=== PATIENT | male | born 1955 | race Caucasian/White ===

== ENCOUNTER 2019-03-19 20:18 | Emergency (ER) | payer OTHER ==
--- NOTE | 2019-03-19 20:44 | EDPHY ---
General Time Seen by Provider: 03/19/19 20:43 Narrative: CLINICAL IMPRESSION: Left hand laceration ASSESSMENT/PLAN: Patient is a 63-year-old male with a history of hypothyroidism and pre diabetes who presents to the emergency department with a left hand laceration. Physical examination reveals a 3 cm laceration on the palmar aspect of the left hand in between the 2nd and 3rd digits with an exit laceration on the dorsal aspect of the 1st webspace, there is pulsatile bleeding concerning for palmar digital artery injury. There is no evidence of neuro compromise, foreign body, or bony involvement. The wound was not contaminated, tetanus status was updated in the emergency department. Secondary to arterial injury, consulted hand specialist Dr. Gonzales. He evaluated this patient in the emergency department and repaired the patient's laceration, please see his dictation for further information. The patient was given Ancef and will continue Keflex as an outpatient, he will follow up with Dr. Gonzales on Wednesday for repeat examination. Return precautions were discussed. ED course: 2111: Case discussed with Dr. Gonzales, he will come in to evaluate this patient. 2219: Dr. Gonzales has completed laceration repair. He would like to see the patient on Wednesday for follow-up. Tetanus status was updated. CHIEF COMPLAINT: Hand Laceration HPI: Patient is a 63-year-old male with a significant history of hypothyroidism and pre diabetes who presents to the emergency department with a laceration to his left hand. Patient reports at approximately noon today he was trying to cut a mattress topper with a filet knife when he accidentally cut through his left hand. Patient applied a dressing, initially have the bleeding under control however several hours later the bleeding started again. Patient lives in [place], initially did not want repaired however was concerned because he could not get it to stop bleeding. Patient denies any numbness or tingling of any of his digits, he is experiencing pain at the site of the laceration only. He denies any decreased range of motion of any digit. He does have a history of remote large laceration to the hand secondary to a chain saw. He is right- hand dominant, he is unsure when his last tetanus status was. He denies any other injury or complaint. REVIEW OF SYSTEMS: All other systems negative, please see HPI. PHYSICAL EXAM: General Appearance: Alert, oriented, appropriate for age, cooperative, NAD, well hydrated, non-toxic appearing, VSS, no hypoxia. Neurological: Alert and oriented x 3. Cranial nerves 2-12 grossly intact. Skin: Warm, dry. See below Upper Extremities: Left hand reveals a 3 cm laceration appears to be through and through to the thenar eminence, initiating in between the 2nd and 3rd digits on the palmar aspect, exiting on the dorsal aspect of the 1st webspace. There is active pulsatile bleeding with concern for palmar digital artery injury. Sensation is intact distally along both sides of each finger. Full range of motion of both the thumb, pointer and middle fingers, each interphalangeal joint was tested independently with full range of motion and strength. The radial, ulnar and median nerves were all tested. Radial nerve: Patient is able to extend wrist and fingers of the local joints. Ulnar nerve: Patient is able to abduct all fingers. Median nerve patient is able to oppose thumb to pinky. 2+ radial pulse. Left upper extremity is otherwise unremarkable with full range of motion and nontender. Lower Extremities: Intact distal pulses, No edema, No tenderness, No cyanosis, full range of motion intact, No calf tenderness bilaterally. MEDICAL DECISION MAKING: Patient was seen independently. Secondary supervising physician at time of evaluation was Dr. Light, he did not evaluate this patient. Diagnosis: Left hand laceration. Summary: See assessment and plan for summary of ED visit Decision to obtain medical records or history from someone other than the patient: No Review / Summarize previous medical records: Yes Disposition: Stable, discharge - Diagnostics Imaging Results: Imaging Impressions Hand X-Ray 03/19/19 20:49 IMPRESSION: 1. No underlying osseous abnormality seen left hand with soft tissue swelling around the second MCP joint. - History Smoking Status: Never smoked - Objective Vital Signs: Initial Vital Signs Temperature (C) 36.3 C 03/19/19 20:20 Heart Rate 78 03/19/19 20:20 Respiratory Rate 16 03/19/19 20:20 Blood Pressure 179/112 H 03/19/19 20:20 O2 Sat (%) 95 03/19/19 20:20 O2 Delivery Mode Room Air Allergies/Adverse Reactions: Penicillins Allergy (Verified 03/19/19 20:21) Home Medications: Medication Instructions Recorded Cephalexin [Keflex (*)] 500 mg PO Q6H 5 Days cap 03/19/19 Synthroid 03/19/19 Medications Given: Discontinued Medications Hydrocodone Bitart/Acetaminophen ([place] 5/325mg Prepack#6) 1 btl TAKEHOME EDNOW ONE Stop: 03/19/19 22:20 Last Admin: 03/19/19 22:33 Dose: 1 btl Cephalexin (Keflex 500 Mg Prepack#4) 1 btl TAKEHOME EDNOW ONE PRN Reason: Protocol Stop: 03/19/19 22:31 Last Admin: 03/19/19 22:35 Dose: 1 btl Diphtheria/Tetanus/Acell Pertussis (Boostrix) 0.5 ml IM .ONCE ONE Stop: 03/19/19 22:21 Last Admin: 03/19/19 22:38 Dose: 0.5 ml Cefazolin Sodium/Dextrose (Ancef 1 Gm (Premix)) 50 mls @ 200 mls/hr IV EDNOW ONE PRN Reason: Protocol Stop: 03/19/19 21:27 Last Admin: 03/19/19 21:41 Dose: 50 mls Departure - Departure Disposition: Home, Routine, Self-Care Clinical Impression: Hand laceration Qualifiers: Encounter type: initial encounter Foreign body presence: without foreign body Laterality: left Qualified Code(s): S61.412A - Laceration without foreign body of left hand, initial encounter Condition: Good Instructions: Cephalexin (By mouth), Hydrocodone/Acetaminophen (By mouth), Laceration (ED) Additional Instructions: DISCHARGE INSTRUCTIONS FROM YOUR PROVIDER Thank you for visiting our emergency department today. Please follow-up with Dr. Gonzales as directed on [place]. Please follow his instructions as far as your wound care. You have been prescribed antibiotics, please take as directed for the next 5 days. Do not soak the wound while the stitches are in place. For pain control: You may take Tylenol, I recommend 500-1000 mg every 6-8 hours as needed. Take with food and a full glass of water. Stop taking if this is upsetting you stomach. Do not exceed 4000 mg in a 24 hr period. You may also take ibuprofen, recommend 400 mg every 6 hr. Take with food and a full glass of water. Stop taking if this upsets your stomach. Do not exceed 2400 mg in a 24 hr period. You have been prescribed [place] which is a narcotic. Please do not drive or operate machinery while taking this medication as it may make you drowsy. It may also be habit forming. This medication can also cause constipation, recommend taking 100 mg of Colace twice daily while taking this medication. This medication also contains Tylenol, please do not take other Tylenol containing products with this medication. Return for signs of wound infection ie: redness, swelling, drainage, foul odor, red streaks, fever, chills, pain, bleeding, if the stitches pop, if the wound opens or for any other new, worsening or worrisome symptoms. People present with illnesses and injuries in different ways, and it is always possible that we have missed something. Again, thank you for choosing our emergency department. We hope that you feel better. Referrals: Rebeca Ellis MD [Primary Care Provider] - As per Instructions Bryce Gonzales MD [Medical Doctor] - 1-2 days without fail Prescriptions: Cephalexin [Keflex (*)] 500 mg PO Q6H 5 Days cap
[2019-03-19] MEDS ORDERED: HYDROCOD/APAP 5/325 PREPACK#6 BTL TAKEHOME ONE (22:19)
[2019-03-19 22:20] VITALS: BP 160/102
[2019-03-19] MEDS ORDERED: TDAP ADULT 0.5 ML INJ (BOOSTRIX) IM ONE (22:20)
[2019-03-19] MEDS ORDERED: CEPHALEXIN 500MG PREPACK#4 BTL TAKEHOME ONE (22:30)
--- NOTE | 2019-03-20 04:12 | GCON ---
[f rep st] CONSULTATION EMERGENCY ROOM CONSULTATION DATE OF CONSULTATION: 03/19/2019 CHIEF COMPLAINT: Laceration, left hand. HISTORY OF PRESENTING COMPLAINT: The patient is a 63-year-old man who was using a filleting knife to cut a mattress when he accidentally stabbed his left nondominant hand. PAST MEDICAL HISTORY: Generally unremarkable. He reports that he is prediabetic. He is a nonsmoker . MEDICATION: Synthroid. PHYSICAL EXAMINATION: GENERAL: He is a healthy-looking 63-year-old male. EXTREMITIES: A sharp, bu t deep laceration of the left hand with the stabbing going into the palmar surface at the radial aspe ct of the index finger from just distal to the distal palmar crease back about midway along the 1st w eb space. The laceration extends deeply in a somewhat skiving fashion and stabs right through into t he dorsum. The dorsal laceration is only about 1 cm long and the volar surface laceration is about 5 cm long. There was pulsatile bleeding noted from the wound and upon exploration, this was seen to b e coming from the radial side digital artery to the index finger with just a partial elisa apparent in the surface of the artery. The digital nerve lying next to it appeared to be intact. The flexor te ndons were functioning, although had some question as to the strength of the digitorum superficialis. There was no pain on using any of the tendons and the sensation had been altered by local anestheti c prior to my arrival. TREATMENT RENDERED: The wound was infiltrated with a little bit of further lidocaine with epinephrin e and the wound was irrigated with saline under pressure and washed carefully. There was no sign of any dirt or contamination in the wound. Rather than ligating the artery, decision was made to perfor m simple sutures, which did appear to completely control the bleeding. A dressing of Xeroform and ga uze was applied, followed by an Alumafoam splint. DISCHARGE PLAN AND FOLLOWUP: A gram of Ancef was given and a tetanus shot will be given prior to his departure. He has been given instructions to keep the hand elevated and will be seen in the morning in my office to reassess the status of the digital nerve and to reassure me that the tendons are in fact fully intact. /[id number]/MODL
== END 2019-03-19 22:55 | disposition home or self-care (01) ==
PROC: 0HQGXZZ Repair Left Hand Skin, External Approach (ICD-10-PCS; principal; 2019-03-19)
DX: S61.412A Laceration without foreign body of left hand, initial encounter (principal); W26.0XXA Contact with knife, initial encounter; E03.9 Hypothyroidism, unspecified; R73.03 Prediabetes; Z23 Encounter for immunization
CPT/HCPCS: 12002; 73130; 90471; 90715; 96374; 99284; J0690